=== PATIENT | female | born 1960 | race Caucasian/White ===

== ENCOUNTER → 2020-06-23 | Outpatient (CLI) | payer OTHER | END | disposition home or self-care (01) | LOC: CT 06-17 13:00 | PROVIDERS: ATTEND Nurse Practitioner Family | DX: K57.90 Diverticulosis of intestine, part unspecified, without perforation or abscess without bleeding (principal); D25.9 Leiomyoma of uterus, unspecified; N28.1 Cyst of kidney, acquired; Z90.49 Acquired absence of other specified parts of digestive tract ==

== ENCOUNTER → 2020-07-14 | Outpatient (CLI) | payer OTHER | END | disposition home or self-care (01) | LOC: US 14:30 | PROVIDERS: ATTEND Nurse Practitioner Women's Health | DX: D25.9 Leiomyoma of uterus, unspecified (principal); R14.0 Abdominal distension (gaseous) ==

== ENCOUNTER 2020-08-15 18:43 | Emergency (ER) | payer OTHER ==
[~2020-08-15] VITALS: Ht 167.6 cm; Wt 70.3 kg
[2020-08-15 19:42] LABS: BILIRUBIN 1+ (Negative); BLOOD 2+ (Negative); CLARITY Turbid (Clear); COLOR Red (Yellow); GLUCOSE 2+ (Negative); KETONE Negative (Negative); LEUKO ESTERASE 2+ (Negative); NITRITE Positive (Negative); UROBILINOGEN 0.2 E.U./dl (0.0-1.0)
[2020-08-15 19:51] LABS: RBC TNTC rbc/hpf (0-2)
[2020-08-15 20:01] LABS: HEMATOCRIT 49.8 % (37.0-47.0); MEAN CELL VOLUME 89.2 fl (81.0-99.0); MEAN CORPUSCULAR HGB 30.6 pg (27.0-31.0); MEAN CORPUSCULAR HGB CONC 34.3 g/dl (33.0-37.0); MEAN PLATELET VOLUME 8.9 fl (9.6-12.3); PLATELET COUNT AUTOMATED 471 10*3/uL (130-400); RED BLOOD COUNT 5.58 10*6/uL (4.10-5.10); RED CELL DISTRI WIDTH 13.2 % (0-14.5); WHITE BLOOD COUNT 16.6 10*3/uL (4.8-10.8)
[2020-08-15 20:17] LABS: ALBUMIN 3.8 gm/dl (3.1-4.5); ALKALINE PHOSPHATASE 124 U/L (45-117); BUN 22 mg/dl (7-24); CHLORIDE 97 mmol/L (98-107); CREATININE 1.11 mg/dL (0.55-1.02); LIPASE 276 U/L (73-393); POTASSIUM 3.5 mmol/L (3.5-5.1); SGOT/AST 13 IU/L (3-35); SGPT/ALT 34 U/L (12-78); SODIUM 133 mmol/L (136-145); TOTAL PROTEIN 8.8 gm/dL (6.4-8.2)
[2020-08-15 20:21] LABS: ATYPICAL LYMPHS 1 % (0-0); BASOPHILS 1 % (0-1); BURR CELLS FEW; PLATELET SUFFICIENCY HIGH (NORMAL); TOTAL CELLS COUNTED 100 #CELLS
[2020-08-15] MEDS ORDERED: CIPRO500 MG PO (21:26)
== END 2020-08-15 21:31 | disposition home or self-care (01) ==
LOC: ED 18:43
PROVIDERS: Internal Medicine
DX: A41.9 Sepsis, unspecified organism (principal); N39.0 Urinary tract infection, site not specified; N17.9 Acute kidney failure, unspecified; N18.9 Chronic kidney disease, unspecified; D72.829 Elevated white blood cell count, unspecified; D75.1 Secondary polycythemia; Z90.49 Acquired absence of other specified parts of digestive tract; Z98.890 Other specified postprocedural states

== ENCOUNTER → 2020-12-12 | Outpatient (CLI) | payer OTHER ==
[~2020-12-12] MED LIST: CIPRO500 MG PO
[2020-12-12 11:38] LABS: CREATININE 1.07 mg/dL (0.55-1.02)
== END | disposition home or self-care (01) ==
LOC: LAB 10:38 → CT 11:00
PROVIDERS: Radiology Diagnostic Radiology; ATTEND Urology
DX: C67.9 Malignant neoplasm of bladder, unspecified (principal); N28.9 Disorder of kidney and ureter, unspecified; N28.1 Cyst of kidney, acquired

== ENCOUNTER → 2021-07-13 | Outpatient (CLI) | payer OTHER ==
[2021-07-13 10:35] LABS: CREATININE 1.21 mg/dL (0.55-1.02)
== END | disposition home or self-care (01) ==
LOC: CT 09:57 → LAB 09:57 → CT 10:00
PROVIDERS: Radiology Diagnostic Radiology; ATTEND Urology
DX: C67.9 Malignant neoplasm of bladder, unspecified (principal); N28.1 Cyst of kidney, acquired; E27.8 Other specified disorders of adrenal gland; D25.9 Leiomyoma of uterus, unspecified

== ENCOUNTER → 2022-03-20 | Outpatient (CLI) | payer OTHER ==
[2022-03-20 16:34] LABS: BASO # 0.1 10*3/uL (0.0-0.1); EOS # 0.2 10*3/uL (0.0-0.4); EOS % 1.3 % (1.0-4.0); HEMATOCRIT 47.1 % (37.0-47.0); LYMPH % 33.5 % (27.0-41.0); MEAN CELL VOLUME 89.7 fl (81.0-99.0); MEAN CORPUSCULAR HGB 30.1 pg (27.0-31.0); MEAN CORPUSCULAR HGB CONC 33.5 g/dl (33.0-37.0); MEAN PLATELET VOLUME 8.8 fl (9.6-12.3); MONO % 8.5 % (3.0-9.0); NEUT # 6.6 10*3/uL (2.3-7.9); NEUT % 55.4 % (47.0-73.0); PLATELET COUNT AUTOMATED 463 10*3/uL (130-400); RED BLOOD COUNT 5.25 10*6/uL (4.10-5.10); RED CELL DISTRI WIDTH 12.8 % (0-14.5); WHITE BLOOD COUNT 11.9 10*3/uL (4.8-10.8)
[2022-03-20 16:45] LABS: ACT PARTIAL THROMBO TIME 27.1 SECONDS (20.0-32.1)
[2022-03-20 16:49] LABS: ALKALINE PHOSPHATASE 97 U/L (46-116); BUN 18 mg/dl (9-23); CHLORIDE 95 mmol/L (98-107); POTASSIUM 3.4 mmol/L (3.4-5.1); SGPT/ALT 25 U/L (10-49); TOTAL PROTEIN 7.7 gm/dL (6.0-8.0)
== END | disposition home or self-care (01) ==
LOC: LAB 15:32
PROVIDERS: ATTEND Urology
DX: Z01.818 Encounter for other preprocedural examination (principal); I45.2 Bifascicular block; R00.0 Tachycardia, unspecified